=== PATIENT | male | born 1985 | race Caucasian/White ===

== ENCOUNTER 2018-07-24 08:42 | Outpatient (CLI) | payer BC ==
--- NOTE | 2018-07-24 10:32 | Ultrasound Report ---
ULTRASOUND ABDOMEN LIMITED INDICATION: Abdominal pain. COMPARISON: None similar. FINDINGS: Right upper quadrant sonography suggests slight diffuse nonspecific hepatic coarsening. Preserved hepatic contours without focal suspicious lesion or biliary dilatation. No gallstones or pericholecystic fluid. Gallbladder wall thickness is 1.8 mm. Common bile duct is 5.3 mm. Imaged pancreas, nonaneurysmal abdominal aorta and IVC within normal limits. Unremarkable right kidney estimated at 9.5 x 4.9 x 4.9 cm with cortical thickness of 1.7 cm. CONCLUSION: No acute right upper quadrant sonographic abnormality, though slight hepatic coarsening not entirely excluded, as described. Please correlate. Thank you for the opportunity to participate in this patient's care.
== END 2018-07-24 08:43 | disposition home or self-care (01) ==
LOC: US 08:42
DX: R10.84 Generalized abdominal pain (principal)
CPT/HCPCS: 76705